=== PATIENT | female | born 1980 | race Caucasian/White ===

== ENCOUNTER 2021-08-09 13:41 | Emergency (ER) | payer SELFPAY ==
[~2021-08-09] VITALS: Ht 162.6 cm; Wt 81.6 kg
[2021-08-09 13:45] VITALS: BP 138/74
--- NOTE | 2021-08-09 14:07 | NUR ---
[employer] LAY SAMPLE COLLECTED AND WALKED TO LAB
[2021-08-09] MEDS ORDERED: PROM118S5 PO (14:43)
--- NOTE | 2021-08-09 14:50 | NUR ---
PATIENT BIB [employer]. PATIENT EXAMINED BY CASEY RAVI. PATIENT MEDICALLY CLEARED AND RELEASED IN CUSTODY IN STABLE CONDITION. ORIGINAL PRE-BOOK FORM GIVEN TO OFFICER DONA.
== END 2021-08-09 14:50 ==
LOC: MED 13:41
DX: R05 Cough (principal); Z20.822 Contact with and (suspected) exposure to COVID-19; Z90.49 Acquired absence of other specified parts of digestive tract; Z02.89 Encounter for other administrative examinations
CPT/HCPCS: 99283